=== PATIENT | male | born 1975 | race Caucasian/White ===

== ENCOUNTER 2022-07-18 08:41 | Emergency (ER) | payer BC ==
[~2022-07-18] VITALS: Ht 185.4 cm; Wt 120.2 kg
[2022-07-18 09:36] VITALS: BP 131/99
== END 2022-07-18 09:36 | disposition home or self-care (01) ==
LOC: ED 08:41
DX: S93.401A Sprain of unspecified ligament of right ankle, initial encounter (principal); X50.1XXA Overexertion from prolonged static or awkward postures, initial encounter; Z91.030 Bee allergy status
CPT/HCPCS: 73610; 99283-25